=== PATIENT | male | born 1980 | race Caucasian/White ===

== ENCOUNTER 2025-05-15 03:56 | Inpatient (IN) | payer MEDICAID, SELFPAY ==
[2025-05-15] VITALS (18 sets, daily range): BP systolic 101–133; BP diastolic 68–92; TEMP 97–98.6; O2SAT 92–100
[~2025-05-15] VITALS: Ht 172.7 cm; Wt 72.6 kg
[2025-05-15] MEDS: MAG SULF 1GM/100ML (MAG RUN) 1 GM in IV 1 EA IV SCH (04:24)
[2025-05-15 04:25] LABS: BASO # 0.0 10^3/uL (0.0-0.2); BASO % 0.3 % (0.0-1.0); EOS # 0.0 10^3/uL (0.0-0.5); EOS % 0.4 % (0.0-3.0); LYMPH # 2.0 10^3/uL (1.5-5.0); LYMPH % 19.6 % (24.0-44.0); MONO # 0.8 10^3/uL (0.0-0.8); MONO % 8.2 % (2.0-8.0); NEUTROPHILS # 7.3 10^3/uL (1.5-8.5); NEUTROPHILS % 71.3 % (36.0-66.0); PLATELET COUNT, AUTOMATED 316 10^3/uL (150-450)
[2025-05-15] MEDS: IPRATROPIUM 0.5 MG/ALBUTEROL 2.5 MG INH SOL UD 3 ML NEB PRN (04:34)
[2025-05-15 05:26] LABS: VENOUS BASE EXCESS 0.0 (-2.0-2.0); VENOUS HCO3 29.9 MMOL/L (23.0-27.0); VENOUS O2 SATURATION 63.7 % (60.0-80.0); VENOUS PARTIAL PRESSURE CO2 72.7 mmHg (38.0-50.0); VENOUS PARTIAL PRESSURE O2 38.0 mmHg (30.0-50.0); VENOUS PH 7.232 UNITS (7.330-7.430); VENOUS STANDARD HCO3 23.6 MMOL/L; VENOUS TOTAL CO2 32.1 MMOL/L (24.0-28.0)
[2025-05-15 06:07] LABS: CK-MB VALUE MASS 9.9 NG/ML (<3.6)
[2025-05-15 06:09] LABS: CPK CREATINE PHOSPHOKINASE 183 U/L (46-171); MB/CK RELATIVE INDEX 5.40 (< OR =4)
[2025-05-15 06:26] LABS: ALT/SGPT 24 U/L (7.0-40); AST/SGOT 27 U/L (<34); CALCIUM LEVEL 8.5 MG/DL (8.5-10.1); CARBON DIOXIDE LEVEL 30 MMOL/L (20-31); CHLORIDE LEVEL 101 MMOL/L (98-107); CREATININE FOR GFR 0.81 MG/DL (0.70-1.30); GLOMERULAR FILTRATION RATE > 90.0 (>60); POTASSIUM SERUM 4.2 MMOL/L (3.5-5.1); SODIUM LEVEL 138 MMOL/L (136-145)
[2025-05-15] MEDS ORDERED: ISOVUE-370 76% 100 ML VIAL As Ordered ONE (06:35)
[2025-05-15 07:04] LABS: CK-MB VALUE MASS 10.0 NG/ML (<3.6); CPK CREATINE PHOSPHOKINASE 246.0 U/L (46-171); MB/CK RELATIVE INDEX 4.06 (< OR =4)
[2025-05-15 07:44] LABS: ABG BASE EXCESS 0.7 (-2.0-2.0); ABG HCO3 27.8 MMOL/L (22.0-26.0); ABG O2 SATURATION 97.4 % (95.0-99.0); ABG PARTIAL PRESSURE CO2 53.8 mmHg (35.0-45.0); ABG PARTIAL PRESSURE O2 100.8 mmHg (75.0-100.0); ABG STANDARD HCO3 25.1 MMOL/L. (22.0-26.0); ABG TOTAL CO2 29.4 MMOL/L (22.0-29.0); ABG pH (ARTERIAL) 7.331 UNITS (7.350-7.450)
[2025-05-15] MEDS: AZITHROMYCIN INJ 500 MG, VIAL MATE ADAPTER 1 EACH in NS 250 ML IV SCH (08:32)
[2025-05-15] MEDS ORDERED: HOME MED LIST COMPLETE! XX SCH (09:00)
[2025-05-15] MEDS: IPRATROPIUM 0.5 MG/ALBUTEROL 2.5 MG INH SOL UD 3 ML NEB SCH (09:48)
[2025-05-15] MEDS: PANTOPRAZOLE 40MG VIAL IV SCH (09:57)
[2025-05-15] MEDS: ENOXAPARIN 40 MG/0.4 ML SYRINGE (J1650 PER 10MG) SC SCH (09:57)
[2025-05-15] MEDS ORDERED: dexmedeTOMidine 200 MCG in IV 1 EA IV SCH (18:25)
[2025-05-16] VITALS (30 sets, daily range): BP systolic 104–131; BP diastolic 61–92; TEMP 97.1–99; O2SAT 87–100
[2025-05-16 04:35] LABS: BASO # 0.0 10^3/uL (0.0-0.2); BASO % 0.0 % (0.0-1.0); EOS # 0.0 10^3/uL (0.0-0.5); EOS % 0.0 % (0.0-3.0); LYMPH # 1.3 10^3/uL (1.5-5.0); LYMPH % 13.3 % (24.0-44.0); MONO # 0.5 10^3/uL (0.0-0.8); MONO % 5.1 % (2.0-8.0); NEUTROPHILS # 7.9 10^3/uL (1.5-8.5); NEUTROPHILS % 81.4 % (36.0-66.0); PLATELET COUNT, AUTOMATED 268 10^3/uL (150-450)
[2025-05-16 04:46] LABS: ALT/SGPT 20 U/L (7.0-40); AST/SGOT 22 U/L (<34); CALCIUM LEVEL 8.7 MG/DL (8.5-10.1); CARBON DIOXIDE LEVEL 31 MMOL/L (20-31); CHLORIDE LEVEL 103 MMOL/L (98-107); CREATININE FOR GFR 0.81 MG/DL (0.70-1.30); GLOMERULAR FILTRATION RATE > 90.0 (>60); MAGNESIUM LEVEL 2.2 MG/DL (1.8-2.4); PHOSPHORUS LEVEL 4.7 MG/DL (2.5-4.9); POTASSIUM SERUM 4.5 MMOL/L (3.5-5.1); SODIUM LEVEL 140 MMOL/L (136-145)
[2025-05-16 05:55] LABS: ABG BASE EXCESS 3.9 (-2.0-2.0); ABG HCO3 30.6 MMOL/L (22.0-26.0); ABG O2 SATURATION 97.4 % (95.0-99.0); ABG PARTIAL PRESSURE CO2 54.6 mmHg (35.0-45.0); ABG PARTIAL PRESSURE O2 103.8 mmHg (75.0-100.0); ABG STANDARD HCO3 27.9 MMOL/L. (22.0-26.0); ABG TOTAL CO2 32.3 MMOL/L (22.0-29.0); ABG pH (ARTERIAL) 7.367 UNITS (7.350-7.450)
[2025-05-16 16:49] LABS: APPEARANCE, URINE CLEAR (CLEAR); BACTERIA, URINE AUTO NEGATIVE (NEGATIVE); BILIRUBIN, URINE AUTO NEGATIVE (NEGATIVE); BLOOD, URINE BLOOD NEGATIVE (NEGATIVE); GLUCOSE, URINE (UA) AUTO NEGATIVE (NEGATIVE); KETONE, URINE AUTO NEGATIVE (NEGATIVE); LEUKOCYTE ESTERASE, URINE AUTO NEGATIVE (NEGATIVE); MUCUS, URINE SMALL (NEGATIVE); NITRITE, URINE AUTO NEGATIVE (NEGATIVE); PROTEIN, URINE AUTO NEGATIVE (NEGATIVE); RBC, URINE AUTO 0 /HPF (0-3); SPECIFIC GRAVITY URINE AUTO 1.028 (1.002-1.035); SQUAMOUS EPITHELIAL CELL UR AU 0 /HPF (0-6); UROBILINOGEN, URINE AUTO 0.2 mg/dL (0.0-2.0); WBC, URINE AUTO 1 /HPF (0-3)
[2025-05-17] VITALS (25 sets, daily range): BP systolic 82–139; BP diastolic 53–82; TEMP 97–99; O2SAT 92–100
[2025-05-17] MEDS: AZITHROMYCIN 250 MG TABLET PO SCH (08:17)
[2025-05-17] MEDS: IPRATROPIUM 0.5 MG/ALBUTEROL 2.5 MG INH SOL UD 3 ML NEB SCH (13:52)
[2025-05-18] VITALS (27 sets, daily range): BP systolic 102–137; BP diastolic 65–86; TEMP 97.5–98.3; O2SAT 92–100
[2025-05-18 05:44] LABS: PLATELET COUNT, AUTOMATED 276 10^3/uL (150-450)
[2025-05-18 06:02] LABS: CALCIUM LEVEL 8.4 MG/DL (8.5-10.1); CARBON DIOXIDE LEVEL 35 MMOL/L (20-31); CHLORIDE LEVEL 100 MMOL/L (98-107); CREATININE FOR GFR 0.84 MG/DL (0.70-1.30); GLOMERULAR FILTRATION RATE > 90.0 (>60); MAGNESIUM LEVEL 2.2 MG/DL (1.8-2.4); POTASSIUM SERUM 4.3 MMOL/L (3.5-5.1); SODIUM LEVEL 142 MMOL/L (136-145)
[2025-05-18 11:30] LABS: BASO # 0.0 10^3/uL (0.0-0.2); BASO % 0.1 % (0.0-1.0); EOS # 0.1 10^3/uL (0.0-0.5); EOS % 0.4 % (0.0-3.0); LYMPH # 1.8 10^3/uL (1.5-5.0); LYMPH % 13.0 % (24.0-44.0); MONO # 0.9 10^3/uL (0.0-0.8); MONO % 6.6 % (2.0-8.0); NEUTROPHILS # 11.0 10^3/uL (1.5-8.5); NEUTROPHILS % 79.5 % (36.0-66.0); PLATELET COUNT, AUTOMATED 278 10^3/uL (150-450)
[2025-05-18 11:54] LABS: CALCIUM LEVEL 8.4 MG/DL (8.5-10.1); CARBON DIOXIDE LEVEL 35 MMOL/L (20-31); CHLORIDE LEVEL 102 MMOL/L (98-107); CREATININE FOR GFR 0.88 MG/DL (0.70-1.30); GLOMERULAR FILTRATION RATE > 90.0 (>60); POTASSIUM SERUM 4.3 MMOL/L (3.5-5.1); SODIUM LEVEL 142 MMOL/L (136-145)
[2025-05-19 06:06] VITALS: BP 119/83; TEMP 98; O2SAT 97
[2025-05-19 06:16] VITALS: O2SAT 97
[2025-05-19] MEDS: predniSONE 20 MG TAB PO SCH (08:25)
[2025-05-19 08:32] VITALS: O2SAT 97
[2025-05-19 08:33] VITALS: O2SAT 95
[2025-05-19] MEDS ORDERED: VENTAER INH (09:09)
[2025-05-19] MEDS ORDERED: PRED20TA PO (09:09)
== END 2025-05-19 11:15 | disposition home or self-care (01) | DRG 140 ==
LOC: EDBD 03:56 → M ED 03:56 → M ED INP 07:28 → M ICU 09:28 → M PCU 05-17 11:54 → M MS5PR 05-18 14:08
PROVIDERS: ADMIT Internal Medicine; ATTEND Family Medicine
DX: J44.1 Chronic obstructive pulmonary disease with (acute) exacerbation (principal); J96.02 Acute respiratory failure with hypercapnia; F17.210 Nicotine dependence, cigarettes, uncomplicated; J98.11 Atelectasis